=== PATIENT | female | born 1950 | race Caucasian/White ===

== ENCOUNTER 2019-12-02 06:39 | Day surgery (SDC) | payer MEDICARE, OTHER ==
[2019-12-02] MEDS ORDERED: NORVASC 5MG5 MG/TAB PO (07:56)
[2019-12-02] MEDS ORDERED: LEXAPRO 10MG10 MG PO (07:57)
[2019-12-02] MEDS ORDERED: COZAAR100 MG PO (07:58)
[2019-12-02] MEDS ORDERED: FIORICET 325 MG1 TA1 PO (08:00)
[2019-12-02] MEDS ORDERED: VITAMIN D31000 IU PO (08:01)
[2019-12-02] MEDS ORDERED: B-121000 MCG PO (08:01)
[2019-12-02] MEDS ORDERED: CALCIUM-MAGNES1 EAC1 PO (08:02)
[2019-12-02] MEDS ORDERED: PROBIOTIC FORMU1 CAP PO (08:02)
--- NOTE | 2019-12-02 09:30 | NUR ---
Patient to radiology at this time.
[2019-12-02] MEDS ORDERED: NORCO 325 MG-51 TAB PO (13:33)
[2019-12-02 14:05] VITALS: BP 130/67; PULSE 86; TEMP 97.1
--- NOTE | 2019-12-02 14:05 | NUR ---
The patient arrived back to [place] [facility] from the recovery room at this time. The patient appears alert and oriented and denies any pain or nausea at this time. The patient has some ice chips from PACU and appears to be tolerating them well. The patient agrees to try some jello. Post operative vital signs were started at this time. The patient's dressing to her left breast appears clean, dry, and intact. The patient's left breast is soft to touch and without pain. Family at bedside. Call light is within reach. Will continue to monitor the patient.
[2019-12-02 14:20] VITALS: BP 123/74; PULSE 85
--- NOTE | 2019-12-02 14:20 | NUR ---
The patient appears to be tolerating the jello well and denies wanting anything further to eat to drink at this time.
[2019-12-02 14:35] VITALS: BP 118/68; PULSE 85
--- NOTE | 2019-12-02 14:35 | NUR ---
The patient's vital signs appear stable. Her family remains at her bedside at this time. The patient denies any pain or nausea at this time. Will continue to monitor the patient.
[2019-12-02 14:50] VITALS: BP 116/72; PULSE 82
--- NOTE | 2019-12-02 14:50 | NUR ---
The patient ambulated to the bathroom with the stand by assistance of one nurse and appeared to tolerate the activity well. The patient voided without difficulty and voices a desire to be discharged home. The patient is going to get dressed and notify the staff when she is ready to be escorted out.
--- NOTE | 2019-12-02 15:00 | NUR ---
Discharge instructions were reviewed with the patient and her family at this time. They all verbalized understanding and have no questions for the nurse at this time. The patient's IV to her right hand was removed and a pressure dressing was applied to the site. The patient is dressed and ready to be escorted out.
--- NOTE | 2019-12-02 15:05 | NUR ---
The patient was escorted out via wheelchair to a private vehicle by ZAK Fernandes. The patient's belongings and discharge paperwork were sent with her. The patient's is present to drive her home.
== END 2019-12-02 15:05 | disposition home or self-care (01) ==
LOC: SDCO 06:39
DX: C50.412 Malignant neoplasm of upper-outer quadrant of left female breast (principal); I10 Essential (primary) hypertension; Z79.899 Other long term (current) drug therapy; Z17.0 Estrogen receptor positive status [ER+]
CPT/HCPCS: A9541; J0690; J1100; J1885; J2250; J2405; J2704; J2795; J7120